=== PATIENT | male | born 1995 | race Caucasian/White ===

== ENCOUNTER 2017-04-15 02:43 | Inpatient (IN) | payer SELFPAY ==
[~2017-04-15] VITALS: Ht 154.9 cm; Wt 42.2 kg
[~2017-04-15 02:43] MED LIST: LITH300C3 PO; RISP1 PO
[2017-04-15 03:31] LABS: BASOPHILS % (AUTO) 0.3 % (0.0-2.0); EOSINOPHILS % (AUTO) 0.2 % (1.0-6.0); HEMATOCRIT 43.4 % (41-53); HEMOGLOBIN 15.1 g/dL (13.5-17.5); LYMPHOCYTES % (AUTO) 25.6 % (22.0-44.0); MEAN CORPUSCULAR HEMOGLOBIN 31.6 pg (26.0-34.0); MEAN CORPUSCULAR HGB CONC 34.7 G/dL (31.0-37.0); MEAN CORPUSCULAR VOLUME 91 fL (80-100); MONOCYTES # (AUTO) 0.4 K/uL (0.1-1.0); MONOCYTES % (AUTO) 5.1 % (2.0-9.0); NEUTROPHILS # (AUTO) 5.4 K/uL (1.8-7.7); NEUTROPHILS % (AUTO) 68.8 % (40.0-70.0); PLATELET COUNT (AUTO) 286 K/uL (150-450); RED BLOOD CELL COUNT(AUTO) 4.77 MIL/uL (4.50-5.90); RED CELL DISTRIBUTION WIDTH 13.3 % (11.5-14.5); WHITE BLOOD COUNT (AUTO) 7.9 K/uL (4.5-11.0)
[2017-04-15 04:05] LABS: ANION GAP 13 mmol/L (8-16); CARBON DIOXIDE 26 mmol/L (22-29); CHLORIDE 101 mmol/L (98-107); CREATININE 0.89 mg/dL (0.60-1.30); GLOMERULAR FILTR. RATE CALC > 60 mL/min (>60); POTASSIUM 4.1 mmol/L (3.5-5.1); SODIUM SERUM 140 mmol/L (136-145); UREA NITROGEN, BLOOD 10 mg/dL (7-18)
[2017-04-15 04:10] LABS: ALANINE AMINOTRANSFERASE 23 U/L (12-78); ALBUMIN 4.7 g/dL (3.4-5.0); ASPARTATE AMINOTRANSFERASE 26 U/L (15-37); BILIRUBIN,TOTAL 0.4 mg/dL (0.1-1.0); TOTAL PROTEIN, SERUM 8.2 g/dL (6.4-8.2)
[2017-04-15] MEDS ORDERED: MAG HYDROX/AL HYDROX/SIMETH ES 30 ML SUSPENSION UDCUP PO PRN (06:15)
[2017-04-15] MEDS ORDERED: ACETAMINOPHEN 325 MG TABLET PO PRN (06:15)
[2017-04-15] MEDS ORDERED: MAGNESIUM HYDROXIDE SUSPENSION 30 ML UDCUP PO PRN (06:15)
[2017-04-15 08:32] VITALS: BP 117/67
[2017-04-15 16:00] VITALS: BP 112/65
[2017-04-15] MEDS: BACITRACIN 28.4 GM OINTMENT TP SCH (17:00)
[2017-04-15] MEDS ORDERED: OLANZapine 5 MG TABLET PO SCH (21:00)
[2017-04-16 06:41] VITALS: BP 100/67
[2017-04-16 08:33] VITALS: BP 98/63
[2017-04-16] MEDS: BACITRACIN 28.4 GM OINTMENT TP SCH ×2 (09:00→16:57)
[2017-04-16] MEDS ORDERED: FLUoxetine HCL 20 MG CAPSULE PO SCH (09:00)
[2017-04-16 09:01] LABS: CHOL/HDL RATIO 2.2 (4.2-7.3)
[2017-04-16 16:06] VITALS: BP 113/77
[2017-04-16] MEDS: HALOPERIDOL 5 MG TABLET PO PRN (20:41)
[2017-04-16] MEDS: OLANZapine 2.5 MG TABLET PO SCH (20:47)
[2017-04-16] MEDS ORDERED: OLANZapine 5 MG TABLET PO ONE (21:30)
[2017-04-17 06:38] VITALS: BP 109/67
[2017-04-17 08:07] VITALS: BP 108/63
[2017-04-17] MEDS: FLUoxetine HCL 10 MG CAPSULE PO SCH (09:00)
[2017-04-17] MEDS: BACITRACIN 28.4 GM OINTMENT TP SCH ×3 (09:14→16:49)
[2017-04-17 16:00] VITALS: BP 110/65
[2017-04-17] MEDS: HALOPERIDOL 5 MG TABLET PO PRN (20:31)
[2017-04-17] MEDS: OLANZapine 2.5 MG TABLET PO SCH (20:31)
[2017-04-18 06:10] VITALS: BP 115/72
[2017-04-18] MEDS: BACITRACIN 28.4 GM OINTMENT TP SCH ×2 (08:05→16:27)
[2017-04-18] MEDS: FLUoxetine HCL 10 MG CAPSULE PO SCH (08:05)
[2017-04-18 08:11] VITALS: BP 110/74
[2017-04-18 16:00] VITALS: BP 120/85
[2017-04-18] MEDS: HALOPERIDOL 5 MG TABLET PO PRN (16:27)
[2017-04-19 06:45] VITALS: BP 101/84
[2017-04-19] MEDS: FLUoxetine HCL 10 MG CAPSULE PO SCH (08:38)
[2017-04-19] MEDS: BACITRACIN 28.4 GM OINTMENT TP SCH (08:38)
[2017-04-19 08:45] VITALS: BP 110/67
[2017-04-19] MEDS ORDERED: HALOPERIDOL 5 MG TABLET PO SCH (09:00)
[2017-04-19] MEDS ORDERED: HALO5 PO (10:49)
== END 2017-04-19 11:30 | disposition home or self-care (01) | DRG 885 ==
LOC: EMS 02:44 → B3A 06:29
PROVIDERS: ADMIT Psychiatry & Neurology Psychiatry; ATTEND Psychiatry & Neurology Psychiatry
DX: F33.2 Major depressive disorder, recurrent severe without psychotic features (principal); R45.851 Suicidal ideations; F20.9 Schizophrenia, unspecified; F17.210 Nicotine dependence, cigarettes, uncomplicated; Z71.6 Tobacco abuse counseling; F41.9 Anxiety disorder, unspecified; Z91.19 Patient's noncompliance with other medical treatment and regimen; F12.90 Cannabis use, unspecified, uncomplicated; Z71.51 Drug abuse counseling and surveillance of drug abuser
CPT/HCPCS: 99285; G0480

== ENCOUNTER 2017-05-27 13:20 | Emergency (ER) | payer SELFPAY ==
[~2017-05-27] VITALS: Ht 152.4 cm; Wt 44.5 kg
[~2017-05-27 13:20] MED LIST changes: +HALO5 PO; -LITH300C3 PO; -RISP1 PO
[2017-05-27 13:29] VITALS: BP 99/79
[2017-05-27 13:56] LABS: BASOPHILS % (AUTO) 0.3 % (0.0-2.0); EOSINOPHILS % (AUTO) 0.7 % (1.0-6.0); HEMOGLOBIN 14.4 g/dL (13.5-17.5); LYMPHOCYTES # (AUTO) 1.8 K/uL (1.0-4.8); LYMPHOCYTES % (AUTO) 31.8 % (22.0-44.0); MEAN CORPUSCULAR HEMOGLOBIN 30.4 pg (26.0-34.0); MEAN CORPUSCULAR HGB CONC 33.5 G/dL (31.0-37.0); MEAN CORPUSCULAR VOLUME 91 fL (80-100); MONOCYTES # (AUTO) 0.3 K/uL (0.1-1.0); NEUTROPHILS # (AUTO) 3.4 K/uL (1.8-7.7); NEUTROPHILS % (AUTO) 61.2 % (40.0-70.0); PLATELET COUNT (AUTO) 251 K/uL (150-450); RED BLOOD CELL COUNT(AUTO) 4.74 MIL/uL (4.50-5.90); RED CELL DISTRIBUTION WIDTH 13.2 % (11.5-14.5)
[2017-05-27 14:06] LABS: ANION GAP 5 mmol/L (8-16); CALCIUM, TOTAL 8.3 mg/dL (8.8-10.5); CARBON DIOXIDE 31 mmol/L (22-29); CHLORIDE 102 mmol/L (98-107); CREATININE 0.91 mg/dL (0.60-1.30); GLOMERULAR FILTR. RATE CALC > 60 mL/min (>60); GLUCOSE,RANDOM 80 mg/dL (70-110); POTASSIUM 3.7 mmol/L (3.5-5.1); SODIUM SERUM 138 mmol/L (136-145); UREA NITROGEN, BLOOD 15 mg/dL (7-18)
[2017-05-27 14:11] LABS: ALANINE AMINOTRANSFERASE 21 U/L (12-78); ALBUMIN 4.2 g/dL (3.4-5.0); ALKALINE PHOSPHATASE 117 U/L (46-116); ASPARTATE AMINOTRANSFERASE 20 U/L (15-37); BILIRUBIN,TOTAL 0.3 mg/dL (0.1-1.0); TOTAL PROTEIN, SERUM 7.4 g/dL (6.4-8.2)
[2017-05-27 15:12] LABS: AMPHET/METH SCREEN,URINE NEGATIVE (NEGATIVE); BARBITURATE SCREEN, URINE NEGATIVE (NEGATIVE); BENZODIAZEPINES SCREEN,URINE NEGATIVE (NEGATIVE); CANNABINOID SCREEN,URINE POSITIVE (NEGATIVE); COCAINE SCREEN,URINE NEGATIVE (NEGATIVE); METHADONE SCREEN, URINE NEGATIVE (NEGATIVE); OPIATE SCREEN,URINE NEGATIVE (NEGATIVE)
[2017-05-27 15:22] LABS: PHENCYCLIDINE SCREEN,URINE NEGATIVE (NEGATIVE)
== END 2017-05-27 15:34 | disposition home or self-care (01) ==
LOC: EMS 13:21
DX: F25.9 Schizoaffective disorder, unspecified (principal)
CPT/HCPCS: 36415; 80053; 80307; 85025; 99285; G0480

== ENCOUNTER 2018-09-12 16:46 | Inpatient (IN) | payer MEDICAID ==
[~2018-09-12] VITALS: Ht 154.9 cm; Wt 43.1 kg
[~2018-09-12 16:46] MED LIST changes: -HALO5 PO; +HALO5TAB2 PO
[2018-09-12] MEDS ORDERED: DIPH25 PO (17:19)
[2018-09-12] MEDS ORDERED: RISP1 PO (17:19)
[2018-09-12] MEDS ORDERED: ACETAMINOPHEN 325 MG TABLET PO PRN (17:45)
[2018-09-12] MEDS ORDERED: 0.9% SODIUM CHLORIDE 10 ML SYRINGE IVP PRN (17:45)
[2018-09-12] MEDS ORDERED: ONDANSETRON HCL 4 MG/2 ML VIAL IVP PRN (17:45)
[2018-09-12] MEDS ORDERED: DiphenhydrAMINE HCL 25 MG CAPSULE PO ONE (18:30)
[2018-09-12] MEDS ORDERED: RisperiDONE 1 MG TABLET PO ONE (18:30)
[2018-09-12 21:39] LABS: BASOPHILS % (AUTO) 0.4 % (0.0-2.0); EOSINOPHILS % (AUTO) 0.2 % (1.0-6.0); HEMATOCRIT 39.4 % (41-53); HEMOGLOBIN 13.8 g/dL (13.5-17.5); LYMPHOCYTES # (AUTO) 1.1 K/uL (1.0-4.8); LYMPHOCYTES % (AUTO) 16.7 % (22.0-44.0); MEAN CORPUSCULAR HEMOGLOBIN 30.2 pg (26.0-34.0); MEAN CORPUSCULAR HGB CONC 35.1 G/dL (31.0-37.0); MEAN CORPUSCULAR VOLUME 86 fL (80-100); MONOCYTES # (AUTO) 0.5 K/uL (0.1-1.0); MONOCYTES % (AUTO) 7.2 % (2.0-9.0); NEUTROPHILS # (AUTO) 4.8 K/uL (1.8-7.7); NEUTROPHILS % (AUTO) 75.5 % (40.0-70.0); PLATELET COUNT (AUTO) 296 K/uL (150-450); RED BLOOD CELL COUNT(AUTO) 4.59 MIL/uL (4.50-5.90); RED CELL DISTRIBUTION WIDTH 13.7 % (11.5-14.5)
[2018-09-12 21:48] LABS: ANION GAP 10 mmol/L (8-16); CALCIUM, TOTAL 9.1 mg/dL (8.8-10.5); CARBON DIOXIDE 26 mmol/L (22-29); CHLORIDE 102 mmol/L (98-107); CREATININE 0.63 mg/dL (0.60-1.30); GLOMERULAR FILTR. RATE CALC > 60 mL/min (>60); GLUCOSE,RANDOM 109 mg/dL (70-110); POTASSIUM 3.9 mmol/L (3.5-5.1); SODIUM SERUM 138 mmol/L (136-145); UREA NITROGEN, BLOOD 9 mg/dL (7-18)
[2018-09-12 21:54] LABS: ALANINE AMINOTRANSFERASE 31 U/L (12-78); ALBUMIN 4.1 g/dL (3.4-5.0); ALKALINE PHOSPHATASE 75 U/L (46-116); ASPARTATE AMINOTRANSFERASE 72 U/L (15-37); BILIRUBIN,TOTAL 0.3 mg/dL (0.1-1.0); TOTAL PROTEIN, SERUM 7.9 g/dL (6.4-8.2)
[2018-09-12] MEDS ORDERED: HALOPERIDOL 5 MG TABLET PO PRN (22:45)
[2018-09-13 01:28] VITALS: BP 106/86
[2018-09-13 06:45] LABS: CHOL/HDL RATIO 3.2 (4.2-7.3)
[2018-09-13 08:15] VITALS: BP 114/65
[2018-09-13] MEDS: RisperiDONE 1 MG TABLET PO SCH ×2 (11:50→17:10)
[2018-09-13] MEDS: LORazepam 2 MG TABLET PO PRN (17:10)
[2018-09-13 19:02] VITALS: BP 110/73
[2018-09-13] MEDS: ZOLPIDEM TARTRATE 10 MG TABLET PO PRN (22:18)
[2018-09-14 08:09] VITALS: BP 111/67
[2018-09-14] MEDS: RisperiDONE 1 MG TABLET PO SCH ×2 (08:21→16:09)
[2018-09-14] MEDS: LORazepam 2 MG TABLET PO PRN (14:33)
[2018-09-14 21:37] VITALS: BP 119/71
[2018-09-15] MEDS: RisperiDONE 1 MG TABLET PO SCH ×2 (08:07→16:54)
[2018-09-15 08:29] VITALS: BP 115/66
[2018-09-15] MEDS: LORazepam 2 MG TABLET PO PRN (13:40)
[2018-09-15 17:54] VITALS: BP 109/60
[2018-09-15 20:33] LABS: APPEARANCE,URINE CLOUDY (CLEAR); BILIRUBIN,URINE NEGATIVE (NEGATIVE); GLUCOSE, URINE (UA) NEGATIVE (NEGATIVE); KETONES,URINE NEGATIVE (NEGATIVE); LEUKOCYTE ESTERASE ,URINE NEGATIVE (NEGATIVE); NITRATE,URINE NEGATIVE (NEGATIVE); OCCULT BLOOD,URINE NEGATIVE (NEGATIVE); PROTEIN,URINE NEGATIVE (NEGATIVE); UROBILINOGEN,URINE 0.2 mg/dL (<=1.0)
[2018-09-16] MEDS: DIVALPROEX SODIUM 250 MG ER TABLET PO SCH ×2 (09:36→16:00)
[2018-09-16] MEDS: RisperiDONE 1 MG TABLET PO SCH ×2 (09:36→16:00)
[2018-09-16 12:55] VITALS: BP 115/60
[2018-09-16] MEDS: LORazepam 2 MG TABLET PO PRN (16:00)
[2018-09-16 16:40] VITALS: BP 122/73
[2018-09-17 08:00] VITALS: BP 140/82
[2018-09-17] MEDS: DIVALPROEX SODIUM 250 MG ER TABLET PO SCH ×2 (08:44→17:35)
[2018-09-17] MEDS: RisperiDONE 1 MG TABLET PO SCH ×2 (08:44→17:35)
[2018-09-17] MEDS ORDERED: LORazepam 2 MG/ML VIAL IM ONE (12:45)
[2018-09-17] MEDS ORDERED: HALOPERIDOL LACTATE 5 MG/ML VIAL IM ONE (12:45)
[2018-09-17] MEDS ORDERED: HALOPERIDOL LACTATE 5 MG/ML VIAL ONE (12:51)
[2018-09-17] MEDS ORDERED: LORazepam 2 MG/ML VIAL ONE (12:51)
[2018-09-17 16:00] VITALS: BP 112/65
[2018-09-18 09:17] VITALS: BP 109/65
[2018-09-18] MEDS: LORazepam 2 MG TABLET PO PRN (09:37)
[2018-09-18] MEDS: RisperiDONE 1 MG TABLET PO SCH ×2 (09:38→16:49)
[2018-09-18] MEDS: DIVALPROEX SODIUM 250 MG ER TABLET PO SCH ×2 (09:38→16:49)
[2018-09-18 23:37] VITALS: BP 116/68
[2018-09-19] MEDS: ZOLPIDEM TARTRATE 10 MG TABLET PO PRN ×2 (01:58→20:08)
[2018-09-19] MEDS: DIVALPROEX SODIUM 250 MG ER TABLET PO SCH ×2 (08:30→16:04)
[2018-09-19] MEDS: RisperiDONE 1 MG TABLET PO SCH ×2 (08:30→16:04)
[2018-09-19 08:41] VITALS: BP 114/70
[2018-09-19] MEDS: LORazepam 2 MG TABLET PO PRN (09:54)
[2018-09-19 16:58] VITALS: BP 116/68
[2018-09-20] MEDS: DIVALPROEX SODIUM 250 MG ER TABLET PO SCH ×2 (08:17→16:25)
[2018-09-20] MEDS: RisperiDONE 1 MG TABLET PO SCH ×2 (08:17→16:25)
[2018-09-20 09:09] VITALS: BP 97/63
[2018-09-20] MEDS: LORazepam 2 MG TABLET PO PRN (09:22)
[2018-09-20 18:06] VITALS: BP 110/68
[2018-09-20] MEDS: ZOLPIDEM TARTRATE 10 MG TABLET PO PRN (20:05)
[2018-09-21] MEDS: RisperiDONE 1 MG TABLET PO SCH (08:48)
[2018-09-21] MEDS: LORazepam 2 MG TABLET PO PRN (08:48)
[2018-09-21] MEDS: DIVALPROEX SODIUM 250 MG ER TABLET PO SCH (08:49)
[2018-09-21 09:07] VITALS: BP 118/74
[2018-09-21] MEDS ORDERED: DIVA250T45 PO (14:42)
[2018-09-21] MEDS ORDERED: RISP2 PO (14:43)
== END 2018-09-21 16:00 | disposition home or self-care (01) | DRG 750 ==
LOC: EMS 16:46 → 3EC 22:21
PROVIDERS: ADMIT Psychiatry & Neurology Child & Adolescent Psychiatry; ATTEND Psychiatry & Neurology Child & Adolescent Psychiatry
DX: F25.0 Schizoaffective disorder, bipolar type (principal); R45.851 Suicidal ideations; R74.0 Nonspecific elevation of levels of transaminase and lactic acid dehydrogenase [LDH]; F12.90 Cannabis use, unspecified, uncomplicated; F15.90 Other stimulant use, unspecified, uncomplicated; F17.200 Nicotine dependence, unspecified, uncomplicated; K59.00 Constipation, unspecified; Z79.899 Other long term (current) drug therapy
CPT/HCPCS: J1630; J2060